=== PATIENT | male | born 1960 | race Caucasian/White ===

== ENCOUNTER → 2016-07-14 | Outpatient (CLI) | payer OTHER ==
[2016-07-14 15:46] LABS: BUN/CREATININE RATIO 13 (0-10)
== END ==
LOC: LAB 14:51
PROVIDERS: Emergency Medicine
DX: E11.65 Type 2 diabetes mellitus with hyperglycemia (principal); I10 Essential (primary) hypertension; E78.2 Mixed hyperlipidemia
CPT/HCPCS: 36415; 80053; 80061; 83036

== ENCOUNTER → 2021-10-09 | Outpatient (CLI) | payer OTHER ==
[~2021-10-09] MED LIST: ALBUTEROL0.63 MG/3 INH; AMLODIPINE BESY10 MG PO; ASPIRIN 325MG325 MG PO; ASPIRIN EC81 MG PO; ATORVASTATIN CA20 MG PO; BROMFED DM COU473 ML PO; CYMBALTA 30 MG30 MG PO; CYMBALTA60 MG PO; FARXIGA5 MG PO; FENOFIBRATE160 MG PO; FISH OIL 1,0001 EACH PO; FISH OIL 1,2001 EACH PO; GABAPENTIN800 MG PO; LEVAQUIN500 MG PO; LISINOPRIL40 MG PO; MEDROL DOSEPAK 24 MG PO; METFORMIN HCL1000 MG PO; METOPROLOL TART50 MG PO; NITROSTAT0.4 MG SL; NOVOLOG FL100 UNIT/1 SQ; NOVOLOG FLEX PEN SQ; NOVOLOG SQ; OMNICEF 300 MG300 MG PO; PANTOPRAZOLE SO40 MG PO; PLAVIX 75 MG TA75 MG PO; PREDNISONE10 MG PO; PROVENTIL HFA 61 INH INH; SIMVASTATIN40 MG PO; SOLIQUA SQ; TOUJEO MAX300 UNIT/1 SQ; TOUJEO SQ; TRADJENTA5 MG PO; TYLENOL 325MG325 MG PO; ZITHROMAX250 MG PO
== END ==
LOC: NM 09:00
DX: E11.43 Type 2 diabetes mellitus with diabetic autonomic (poly)neuropathy (principal)
CPT/HCPCS: 78264; A9541